=== PATIENT | female | born 2000 | race Caucasian/White ===

== ENCOUNTER 2021-04-19 08:23 | Emergency (ER) | payer OTHER ==
[2021-04-19 09:16] LABS: Urine Blood 1+ (Negative); Urine Glucose Negative (Negative); Urine Protein Negative (Negative); Urine Specific Gravity 1.025 (1.005-1.030); Urine pH 5.5 (5.0-7.0)
[2021-04-19] MEDS ORDERED: TRAMADOL HCL 50 MG TAB ONE (09:45)
[2021-04-19] MEDS ORDERED: IBUPROFEN 400 MG TAB ONE (09:46)
[2021-04-19] MEDS ORDERED: DIAZEPAM 5 MG TABLET ONE (09:47)
--- NOTE | 2021-04-19 10:35 | RAD REPORT ---
EXAM DESCRIPTION: RAD - Lumbar Spine 3 Views - 04/19/2021 9:20 am CLINICAL HISTORY: back pain Radiculopathy COMPARISON: No comparisons FINDINGS: Vertebral body heights appear maintained. No compression fracture noted. 4 mm retrolisthes is is seen L5-S1. IMPRESSION: Subtle retrolisthesis of 4 mm affects L5-S1.
--- NOTE | 2021-04-19 11:20 | EDPHYS ---
Physician Documentation [facility] Name: Bridgette Craven Age: 20 yrs Sex: Female : 2000 Arrival Date: 04/19/2021 Time: 08:24 Bed 15 Private MD: ED Physician Oseas Cody HPI: 04/19 08:40 This 20 yrs old Female presents to ER via Ambulatory with complaints of Back jmm Pain. 08:40 The patient presents with pain that is acute. Onset: The symptoms/episode jmm began/occurred gradually, 1 week(s) ago. The pain radiates to the right leg. Associated signs and symptoms: Pertinent negatives: dysuria, fever, hematuria, incontinence, numbness, urinary retention, vomiting, weakness. The patient has not experienced similar symptoms in the past. Patient was seen at [facility] the ED with no relief of symptoms after steroid and anti-inflammatory injection.. 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 - Social history:: Smoking status: Patient denies any tobacco usage or history of. ROS: 08:40 Constitutional: Negative for fever, chills, and weight loss, Cardiovascular: Negative jmm for chest pain, palpitations, and edema, Respiratory: Negative for shortness of breath, cough, wheezing, and pleuritic chest pain. 08:40 Back: Positive for pain with movement. 08:40 MS/extremity: Positive for pain. 08:40 All other systems are negative. Exam: 08:40 Constitutional: This is a well developed, well nourished patient who is awake, alert, jmm and in no acute distress. Head/Face: atraumatic. Eyes: EOMI, no conjunctival erythema appreciated ENT: Moist Mucus Membranes Neck: Trachea midline, Supple Chest/axilla: Normal chest wall appearance and motion. Cardiovascular: Regular rate and rhythm. No edema appreciated Respiratory: Normal respirations, no respiratory distress appreciated Abdomen/GI: Non distended, soft 08:40 Back: pain, that is mild, of the lumbar area. 08:40 Musculoskeletal/extremity: ROM: intact in all extremities. 08:40 Skin: Appearance: Color: normal in color. 08:40 Neuro: Orientation: is normal, Mentation: is normal, Memory: is normal. 08:40 Psych: Behavior/mood is pleasant, cooperative. Vital Signs: 08:34 BP 107 / 55; Pulse 101; Resp 16; Temp 98.0; Pulse Ox 100% on R/A; es2 MDM: 08:33 Patient medically screened. [facility] 11:18 Data reviewed: vital signs, nurses notes. Counseling: I had a detailed discussion with [facility] the patient and/or guardian regarding: the historical points, exam findings, and any diagnostic results supporting the discharge/admit diagnosis, radiology results, the need for outpatient follow up, to return to the emergency department if symptoms worsen or persist or if there are any questions or concerns that arise at home. ED course: X x-ray reveals retrolithiasis. Patient is advised to follow-up with spine surgery for further evaluation. Most likely has a sciatica secondary to this condition. This was nontraumatic. Patient has had this diagnosis previously. Patient has no signs of cauda equina at this point.. 04/19 09:15 Order name: Urine --Ancillary (enter results) [facility] 04/19 09:15 Order name: Urine --Ancillary [facility] 04/19 08:40 Order name: Lumbar Spine (3 Views) XRAY; Complete Time: 10:36 [facility] 04/19 09:16 Order name: Urine Dipstick-Ancillary [facility] 04/19 08:40 Order name: Urine Dipstick-Ancillary (obtain specimen); Complete Time: 09:12 [facility] 04/19 08:40 Order name: Urine Test (obtain specimen); Complete Time: 09:12 [facility] Administered Medications: 09:24 Drug: Ibuprofen 800 mg Route: PO; es2 10:19 Follow up: Response: No adverse reaction es2 09:24 Drug: traMADol 50 mg {Note: Rass 0.} Route: PO; es2 10:16 Follow up: Response: No adverse reaction es2 09:25 Drug: Valium (diazepam) 5 mg Route: PO; es2 10:16 Follow up: Response: No adverse reaction es2 10:16 Follow up: Response: No adverse reaction es2 Disposition: 22:53 Co-signature as Attending Physician, Oseas Cody MD I agree with the assessment and kdr plan of care. Disposition Summary: 04/19/21 11:19 Discharge Ordered Location: Home [facility] Condition: Stable jm Diagnosis - Sciatica, right side jm Followup: jmm - With: Private Physician - When: 2 - 3 days - Reason: Recheck today's complaints, Continuance of care, Re-evaluation by your physician Discharge Instructions: - Discharge Summary Sheet [facility] - Sciatica [facility] Forms: - Medication Reconciliation Form [facility] - Thank You Letter [facility] - Antibiotic Education [facility] - Prescription Opioid Use [facility] Prescriptions: - Ibuprofen 800 mg Oral Tablet - take 1 tablet by ORAL route every 12 hours As needed take with food; 20 tablet; jmm Refills: 0, Product Selection Permitted - Zanaflex 4 mg Oral Tablet - take 1 tablet by ORAL route every 8 hours As needed; 20 tablet; Refills: 0, jmm Product Selection Permitted Signatures: Dispatcher [employer] Oseas Coe MD MD kdr Mickail, Joel, PA PA jmm Smith, Elizabeth, RN RN es2
--- NOTE | 2021-04-19 11:20 | ER ---
Nurse's Notes [facility] Name: Bridgette Craven Age: 20 yrs Sex: Female : 2000 Arrival Date: 04/19/2021 Time: 08:24 Bed 15 Private MD: Diagnosis: Sciatica, right side Presentation: 04/19 08:36 Chief complaint: Patient states: lower back pain that radiates to R leg. 7/10 standing, es2 worse with sitting. 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 Coronavirus screen: Vaccine status: Patient reports being unvaccinated. Ebola Screen: Patient negative for fever greater than or equal to 101.5 degrees Fahrenheit, and additional compatible Ebola Virus Disease symptoms Patient denies exposure to infectious person. Patient denies travel to an Ebola-affected area in the 21 days before illness onset. No symptoms or risks identified at this time. Initial Sepsis Screen: Does the patient meet any 2 criteria? No. Patient's initial sepsis screen is negative. Does the patient have a suspected source of infection? No. Patient's initial sepsis screen is negative. Risk Assessment: Do you want to hurt yourself or someone else? Patient reports no desire to harm self or others. Onset of symptoms. 08:36 Method Of Arrival: Ambulatory es2 08:36 Acuity: STAN 3 es2 Triage Assessment: 08:41 General: Appears slender, Behavior is calm, cooperative, appropriate for age. Pain: es2 Complains of pain in lower back that radiates to R leg. Pain currently is 7 out of 10 on a pain scale. EENT: No signs and/or symptoms were reported regarding the EENT system. Neuro: Level of Consciousness is awake, alert, obeys commands, Oriented to person, place, time, situation, Appropriate for age Gait is steady, Speech is normal. Cardiovascular: Capillary refill < 3 seconds Patient's skin is warm and dry. Respiratory: Airway is patent Respiratory effort is even, Respiratory pattern is regular. GI: No signs and/or symptoms were reported involving the gastrointestinal system. : No signs and/or symptoms were reported regarding the genitourinary system. Derm: No signs and/or symptoms reported regarding the dermatologic system. Musculoskeletal: Range of motion: intact in all extremities. 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 - Social history:: Smoking status: Patient denies any tobacco usage or history of. Screenin:48 Abuse screen: Denies threats or abuse. Denies injuries from another. Nutritional es2 screening: No deficits noted. Tuberculosis screening: No symptoms or risk factors identified. Fall Risk Gait- Normal/Bed Rest/Wheelchair (0 pts) Mental Status- Oriented to own ability (0 pts). Assessment: 08:43 General: Appears slender, Behavior is calm, cooperative, appropriate for age. Pain: es2 Complains of pain in lumbar area and right leg Pain currently is 7 out of 10 on a pain scale. Neuro: Level of Consciousness is awake, alert, obeys commands, Gait is steady, Speech is normal. Cardiovascular: Capillary refill < 3 seconds Patient's skin is warm and dry. Respiratory: Airway is patent Respiratory effort is even, Respiratory pattern is regular. GI: No signs and/or symptoms were reported involving the gastrointestinal system. : No signs and/or symptoms were reported regarding the genitourinary system. EENT: No signs and/or symptoms were reported regarding the EENT system. Derm: No signs and/or symptoms reported regarding the dermatologic system. Musculoskeletal: Reports pain in lumbar area and right leg. Vital Signs: 08:34 BP 107 / 55; Pulse 101; Resp 16; Temp 98.0; Pulse Ox 100% on R/A; es2 ED Course: 08:24 Patient arrived in ED. as 08:25 Lavelle Bennett PA is PHCP. jmm 08:25 Oseas Cody MD is Attending Physician. jmm 08:30 Sveta Brady RN is Primary Nurse. es2 08:40 Triage completed. es2 08:48 Arm band placed on. es2 08:48 Patient has correct armband on for positive identification. Call light in reach. es2 08:48 No provider procedures requiring assistance completed. es2 09:00 Urine collected: clean catch specimen, cloudy. kj1 09:17 Lumbar Spine (3 Views) XRAY In Process Unspecified. EDMS 09:18 Urine --Ancillary (enter results) Sent. es2 09:18 Urine --Ancillary Sent. es2 09:18 Urine Dipstick-Ancillary Sent. es2 11:29 Patient did not have IV access during this emergency room visit. es2 Administered Medications: 09:24 Drug: Ibuprofen 800 mg Route: PO; es2 10:19 Follow up: Response: No adverse reaction es2 09:24 Drug: traMADol 50 mg {Note: Rass 0.} Route: PO; es2 10:16 Follow up: Response: No adverse reaction es2 09:25 Drug: Valium (diazepam) 5 mg Route: PO; es2 10:16 Follow up: Response: No adverse reaction es2 10:16 Follow up: Response: No adverse reaction es2 Outcome: 11:19 Discharge ordered by . andrei 11:28 Discharged to home ambulatory. es2 11:28 Condition: stable 11:28 Discharge instructions given to patient, Instructed on discharge instructions, medication usage, Demonstrated understanding of instructions, medications, Prescriptions given X 2. 11:29 Patient left the ED. es2 Signatures: Dispatcher [employer] EDMS Lavelle Bennett PA PA jmm Martinez, Amelia as Jackson, Kandis kj1 Sveta Brady RN RN es2
[2021-04-19 11:33] VITALS: BP 107/55; TEMP 98; O2SAT 100
[2021-04-19 14:30] LABS: Urine Specific Gravity/Preg 1.025 (1.005-1.030)
== END 2021-04-19 11:29 | disposition home or self-care (01) ==
LOC: ER 08:23
DX: M54.31 Sciatica, right side (principal); Z88.0 Allergy status to penicillin
CPT/HCPCS: 72100; 81003; 81025; 99284